=== PATIENT | female | born 2000 | race Caucasian/White ===

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

== ENCOUNTER → 2023-07-31 16:00 | Outpatient (CLI) | payer OTHER, SELFPAY ==
[2023-07-31 18:15] LABS: Adenovirus,PCR Not Detected (NotDetected); Bordetella Pertussis Not Detected (NotDetected); Chlamydophila Pneumoniae, PCR Not Detected (NotDetected); Coronavirus 19, PCR Not Detected (NotDetected); Coronavirus 229E Not Detected (NotDetected); Coronavirus NL63 Not Detected (NotDetected); Coronavirus OC43 Not Detected (NotDetected); Coronovirus HKU1,PCR Not Detected (NotDetected); Human Metapneumovirus Not Detected (NotDetected); Influenza A, PCR Not Detected (NotDetected); Influenza AH1, 2009 Not Detected (NotDetected); Influenza AH1, PCR Not Detected (NotDetected); Influenza AH3,PCR Not Detected (NotDetected); Influenza B, PCR Not Detected (NotDetected); Mycoplasma Pneumoniae, PCR Not Detected (NotDetected); Parainfluenza 1, PCR Not Detected (NotDetected); Parainfluenza 2, PCR Not Detected (NotDetected); Parainfluenza 3, PCR Not Detected (NotDetected); Parainfluenza 4, PCR Not Detected (NotDetected); Respiratory Syncytial Virus Not Detected (NotDetected)
[2023-08-01 01:49] LABS: Rhinovirus/Enterovirus Detected (NotDetected)
== END ==
LOC: LAB.DROPOF 08-13 13:50
PROVIDERS: PCP Nurse Practitioner Family; Visit Provider Nurse Practitioner Family
DX: J06.9 Acute upper respiratory infection, unspecified (principal); J02.9 Acute pharyngitis, unspecified; B34.1 Enterovirus infection, unspecified
CPT/HCPCS: 87070; 87581; 87632; 87798

== ENCOUNTER 2024-07-22 16:24 | Emergency (ER) | payer OTHER, SELFPAY ==
[2024-07-22 16:41] VITALS: BP 128/77; PULSE 104; RESP 20; TEMP 37.1; O2SAT 97; BMI 26.3
[2024-07-22 16:50] LABS: UTC Strep Screen (Rapid) Negative (Negative)
--- NOTE | 2024-07-22 16:56 | ED_ITS ---
Discharge Plan Disposition Patient Disposition: Home, Self-Care Condition: Good Prescriptions Prescriptions: New azithromycin [Zithromax] 250 mg tablet 250 mg PO UD DOSE PK Qty: 6 0RF Rx Instructions: Take two (2) tablets today, then one (1) tablet days #2 thru #5 methylprednisolone 4 mg Tablets,Dose Pack 4 mg PO DIRECTED 6 Days Qty: 21 0RF Rx Instructions: Take 1 pack as directed for 6 days pkmgjuzddveqmvq-[id number] [Bromfed DM] 2-30-10 mg/5 mL Syrup 5 ml PO Q6H PRN (Reason: Cough) Qty: 240 0RF Referrals Follow up/Referrals: Provider,Referral, MD [Primary Care Provider] - See instructions Activity Restrictions/Add. Instructions Additional Instructions/Restrictions: Drink plenty of fluids. Take tylenol or ibuprofen for pain or fever. Take the medications as directed. Follow up with your regular doctor. GO TO THE ER FOR ANY WORSENING SYMPTOMS Clinical Impressions Clinical Impression: Sinusitis, Bronchitis, Acute viral syndrome Stand Alone Forms Stand Alone Forms: Work/School Release Instructions Patient Instructions: DI for Sinusitis Print Language Print Language: Upper Sorbian Discharge ED Provider: Nelson Washington [facility] [place] General Stated complaint: cough Mode of Arrival: Ambulatory Source of Information: Patient Time Seen by Provider: 07/22/24 16:56 Description of Symptoms (Recalled from Triage Doc. by RN): COUGHING,SORE THR OAT,RUNNY NOSE HEENT Symptoms (Recalled from RN notes): Yes (RUNNY NOSE) Resp Symptoms (Recalled from RN notes): Yes (COUGHING) Skin Symptoms (Recalled from RN notes): No MS Symptoms (Recalled from RN notes): No Functional Status (Recalled from RN notes): WNL History of Present Illness Provider Complaint: She states that for the past 3 days she has had sinus congestion and sore throat. Related Data Previous Rx's ?Medication ?Instructions ?Recorded azithromycin 250 mg tablet 250 mg PO UD DOSE PK #6 tabs 07/22/24 (Zithromax) aymyljixvpjosnn-ntukyzlqviqhpdl-DN 5 ml PO Q6H PRN Cough #240 mL 07/22/24 2 mg-30 mg-10 mg/5 mL oral syrup (Bromfed DM) methylprednisolone 4 mg tablets in 4 mg PO DIRECTED 6 days #21 tabs 07/22/24 a dose pack Allergies Allergy/AdvReac Type Severity Reaction Status Date / Time No Known Allergies Allergy Verified 07/31/23 15:14 Worker's Comp Is this a Worker's Comp case?: No [facility] Disclaimer: The information contained in this section may have been updated after the patient was seen, as this information can be updated by other users. Medical History (Updated 07/22/24 @ 17:09 by Nelson Washington APRN) Non-functioning gallbladder Surgical History (Updated 07/31/23 @ 15:15 by Emy Last) Hx of cholecystectomy Hx of tonsillectomy Family History (Updated 07/31/23 @ 15:15 by Emy Last) Other No significant family history Social History Smoking Status: Never smoker second hand exposure: No alcohol intake: never substance use type: denies use current occupational status: other Travel in the last 8 weeks: Inside the [place] household members: family housing: house current occupational exposures/hazards: No caffeine: No ROS Obtained: Yes All systems reviewed & no additional complaints except as do cumented Constitutional Constitutional: Denies chills, Reports fever(s) and Reports poor appetite Eyes Eyes: Denies eye discharge ENT Ears, Nose, Mouth, and Throat: Denies ear discharge, Reports otalgia, Denies hearing loss, Denies sinus pain and Reports sore throat Cardiovascular Cardiovascular: Denies chest pain and Denies dyspnea Respiratory Respiratory: Denies chest congestion, Reports cough and Denies dyspnea Gastrointestinal Gastrointestingal: Denies abdominal pain, diarrhea, nausea or vomiting Musculoskeletal Musculoskeletal: Denies arthralgias Integumentary/Breasts Skin/Breast: Denies rash Physical Exam General General appearance: alert and in no apparent distress Head Head exam: atraumatic, normocephalic and normal inspection Eye Eye exam: Present normal appearance; Absent PERRL or EOMI ENT ENT exam: Present mucous membranes moist and normal external ear exam Expanded ENT Exam TM/Canal exam: Bilateral TM: erythema, bulging and effusion Nose exam: Absent sinus tenderness Nasal speculum exam: Bilateral: normal Mouth exam: Present normal external inspection and other; Absent drooling Teeth exam: Present normal inspection Throat exam: Present tonsillar erythema and tonsillomegaly Neck Neck exam: Present normal inspection, full ROM and trachea midline; Absent tenderness, meningismus or lymphadenopathy Chest Chest inspection: Present normal inspection and symmetric chest wall rise; Absent tenderness Respiratory Respiratory exam: Present normal lung sounds bilaterally; Absent respiratory distress, wheezes or stridor Cardiovascular Cardiovascular exam: Present regular rate, normal rhythm and normal heart sounds; Absent tachycardia or irregular rhythm Abdominal Exam Abdominal exam: Present soft and normal bowel sounds; Absent distention, tend erness, guarding, rebound or rigidity Extremities Exam Extremities exam: Present normal inspection and normal capillary refill; Absent tenderness, joint swelling or calf tenderness Back Exam Back exam: Present normal inspection and full ROM; Absent tenderness, CVA tenderness (R) or CVA tenderness (L) Neurological Exam Neurological exam: Present alert, oriented X3, CN II-XII intact, normal gait and reflexes normal; Absent motor sensory deficit Psychiatric Psychiatric exam: Present normal affect and normal mood Skin Skin exam: Present warm, dry, intact and normal color Lymphatic Lymphatic Findings: no adenopathy Medical Decision Making Medical Records Medical records reviewed: No I reviewed the patient's medical records. Sharif Inquiry Pt receiving controlled substance: No Vital Signs: 07/22/24 16:41 Temperature 98.8 F Temperature Source Oral Pulse Rate [Left Brachial] 104 H Respiratory Rate 20 Blood Pressure [Left Arm] 128/77 Blood Pressure Mean [Left Arm] 94 02 Sat by Pulse Oximetry 97 Lab Data Lab results reviewed: Yes I reviewed the patient's lab results. Lab Results 07/22/24 16:41: Strep Scn Rapid Clinic Negative Orders (Tests/Meds): ORDERS Category Date Time Status Strep Screen Confirmation Stat Micro 07/22/24 16:41 Received
[2024-07-22 17:10] VITALS: BP 128/77; PULSE 104; RESP 20; TEMP 37.1
== END 2024-07-22 17:19 | disposition home or self-care (01) ==
PROVIDERS: Emergency Provider Nurse Practitioner Family
DX: J20.9 Acute bronchitis, unspecified (principal); J01.90 Acute sinusitis, unspecified; B34.9 Viral infection, unspecified
CPT/HCPCS: 87880; 99204; 99212; G0463

== ENCOUNTER 2024-09-29 17:13 | Emergency (ER) | payer OTHER, SELFPAY ==
--- NOTE | 2024-09-29 17:16 | XR_ITS ---
PROCEDURE INFORMATION: Exam: XR Right Hand Exam date and time: 09/29/2024 5:21 PM Age: 24 years old Clinical indication: Injury or trauma; Other: Smashed thumb in car door; Other: Pain TECHNIQUE: Imaging protocol: Radiologic exam of the right hand. Views: 3 or more views. COMPARISON: No relevant prior studies available. FINDINGS: Bones/joints: Normal. Soft tissues: Normal. IMPRESSION: No acute findings.
[2024-09-29 18:15] VITALS: BP 133/88; PULSE 73; RESP 20; TEMP 37.2; O2SAT 98; BMI 27.2
--- NOTE | 2024-09-29 18:31 | ED_ITS ---
Discharge Plan Referrals Follow up/Referrals: Reva Hendrix PA [Primary Care Provider] - See instructions Activity Restrictions/Add. Instructions Additional Instructions/Restrictions: *RICE, Rest the extremity, Ice 15-20 minutes 3-4 times daily, Compress- wear the joshua wrap as discussed as much as possible to help reduce swelling and pain, Elevate the extremity when at rest *Finger splint is for support and help control swelling, use it except in the shower. Be sure that is not to tight but not to loose either *Elevate when resting? *Ibuprofen 600-800mg every 6-8 hours as needed for pain an inflammation. If need something more can take Tylenol in between doses of Ibuprofen to help Immediately follow up with your family doctor for new or worsening of symptoms, or no noticeable improvement over the next 3-5 days Clinical Impressions Clinical Impression: Contusion of finger Instructions Patient Instructions: DI for Finger Sprain, How To Perform RICE (Rest, Ice, Compress, Elevate) Print Language Print Language: Lithuanian Discharge ED Provider: Bridget Daniel [facility] HPI General Stated complaint: AO 09/29/24 1045 Right thumb mashed in car door Mode of Arrival: Ambulatory Source of Information: Patient Limitations: No Limitations Time Seen by Provider: 09/29/24 18:31 Description of Symptoms (Recalled from Triage Doc. by RN): PATIENT C/O PAIN, BRUISING AND SWELLING TO RIGHT THUMB AFTER SHE SLAMMED IT IN A CAR DOOR TODAY HEENT Symptoms (Recalled from RN notes): No Resp Symptoms (Recalled from RN notes): No Skin Symptoms (Recalled from RN notes): No MS Symptoms (Recalled from RN notes): Yes Functional Status (Recalled from RN notes): WNL History of Present Illness Provider Complaint: Patient states that she accidently shut her right thumb up in car door earlier today states that she has been having swelling and bruising since Related Data Allergies Allergy/AdvReac Type Severity Reaction Status Date / Time No Known Allergies Allergy Verified 07/31/23 15:14 Worker's Comp Is this a Worker's Comp case?: No [facility] Disclaimer: The information contained in this section may have been updated after the patient was seen, as this information can be updated by other users. Medical History (Updated 09/29/24 @ 18:38 by Bridget Daniel APRN) Non-functioning gallbladder Surgical History (Updated 07/31/23 @ 15:15 by Emy Last) Hx of cholecystectomy Hx of tonsillectomy Family History (Updated 07/31/23 @ 15:15 by Emy Last) Other No significant family history Social History Smoking Status: Never smoker second hand exposure: No alcohol intake: never substance use type: denies use current occupational status: other Travel in the last 8 weeks: Inside the [place] household members: family housing: house current occupational exposures/hazards: No caffeine: No ROS Obtained: Yes All systems reviewed & no additional complaints except as documented and Yes Systems reviewed as appropriate & no additional complaints except as documented Constitutional Constitutional: Reports system reviewed and no additional complaints, except as documented and Reports as per HPI ENT Ears, Nose, Mouth, and Throat: Reports system reviewed and no additional complaints, except as documented and Reports as per HPI Cardiovascular Cardiovascular: Reports system reviewed and no additional complaints, except as documented and Reports as per HPI Respiratory Respiratory: Reports system reviewed and no additional complaints, except as documented and Reports as per HPI Musculoskeletal Musculoskeletal: Reports system reviewed and no additional complaints, except as documented, Reports as per HPI and Reports other (pain and swelling in right thumb) Physical Exam General General appearance: alert and in no apparent distress ENT ENT exam: Present normal exam, normal oropharynx, mucous membranes moist and TM's normal bilaterally Respiratory Respiratory exam: Present normal lung sounds bilaterally; Absent respiratory distress or wheezes Cardiovascular Cardiovascular exam: Present regular rate, normal rhythm and normal heart sounds Expanded Upper Extremity Exam Right: Hand L/R back image: 2 1. swelling and bruising noted, able to move finger + cap refill no open wounds or lacerations Vascular exam: Normal capillary refill Neurological Exam Neurological exam: Present alert, oriented X3 and normal gait Medical Decision Making Medical Records Screening: Per USPSTF and CDC recommendations, given the prevalence of disease in our region, it is our hospital?s policy to screen for HIV and viral Hepatitis for all patients aged 18 and over and those with ongoing risk factors. Sharif Inquiry Pt receiving controlled substance: No Sharif was queried for this patient: No Vital Signs: 09/29/24 18:15 Temperature 98.9 F Temperature Source Oral Pulse Rate [Left Brachial] 73 Respiratory Rate 20 Blood Pressure [Left Arm] 133/88 Blood Pressure Mean [Left Arm] 103 Blood Pressure Source [Left Arm] Automatic Cuff Blood Pressure Position [Left Arm] Sitting 02 Sat by Pulse Oximetry 98 Oxygen Delivery Method Room Air Orders (Tests/Meds): ORDERS Category Date Time Status XR hand RT min 3V Stat Exams 09/29/24 17:16 Completed Radiology Data #1: Image(s): Hand Image Reviewed: Yes I have reviewed radiologist's interpretation FINDINGS: Bones/joints: Normal. Soft tissues: Normal. IMPRESSION: No acute findings. Procedures Orthopedic Splinting/Casting Injury #1: Side: right Upper Extremity Injury Location: finger Upper Extremity Immobilizer: finger (other) Post Cast/Splinting Neuro Status: intact and no change Post Cast/Splinting Vasc Status: intact and no change
[2024-09-29 18:38] VITALS: BP 133/88; PULSE 73; RESP 20; TEMP 37.2; O2SAT 98
--- NOTE | 2024-09-29 18:39 | PC.NURSE ---
ALUMINUM FINGER SPLINT APPLIED TO PATIENT'S RIGHT THUMB
== END 2024-09-29 18:41 | disposition home or self-care (01) ==
LOC: UTC 17:16
PROVIDERS: Emergency Provider Nurse Practitioner; PCP Physician Assistant
DX: S60.011A Contusion of right thumb without damage to nail, initial encounter (principal); M79.644 Pain in right finger(s); R22.31 Localized swelling, mass and lump, right upper limb
CPT/HCPCS: 73130; 99212; G0381